=== PATIENT | female | born 1985 | race Caucasian/White ===

== ENCOUNTER 2019-12-31 00:22 | Emergency (ER) | payer MEDICAID ==
[2019-12-31] MEDS ORDERED: DICYCLOMINE HCL INJ 20 MG/2 ML AMPULE IM ONE ×2 (01:10→04:00)
[2019-12-31] MEDS ORDERED: ONDANSETRON 4 MG TAB.RAPDIS PO ONE ×2 (01:10→04:00)
[2019-12-31] MEDS ORDERED: FAMOTIDINE 20 MG TABLET PO ONE ×2 (01:10→04:00)
--- NOTE | 2019-12-31 01:14 | ER Document Report ---
ED Medical Screen (RME) - General Chief Complaint: Abdominal Pain Stated Complaint: CHEST PAIN Time Seen by Provider: 12/31/19 01:07 Mode of Arrival: Ambulatory Information source: Patient Notes: 34-year-old female coming in today for abdominal pain that is now radiating into the chest pain. Symptoms going on for the past couple of days. Patient has a complex history of abdominal/rectal surgeries in the past. No known bowel obstructions. Having pain in the abdomen but now also having pain up under her left breast. Physical exam General: Patient looks very uncomfortable, nontoxic Cardiac regular rate and rhythm, no murmurs rubs or gallops Pulmonary: Tachypneic lung sounds clear Abdomen: Tenderness to the right upper quadrant, left upper quadrant, epigastrium Neuro no focal neuro deficits I have greeted and performed a rapid initial assessment of this patient. A comprehensive ED assessment and evaluation of the patient, analysis of test results and completion of the medical decision making process will be conducted by additional ED providers. - Related Data Allergies/Adverse Reactions: diphenhydramine [From Benadryl] Adverse Reaction (Verified 12/31/19 01:07) Past Medical History - Social History Frequency of alcohol use: None Drug Abuse: Marijuana Physical Exam - Vital signs Vitals: Temp Pulse Resp BP Pulse Ox 97.6 F 92 16 104/62 100 12/31/19 00:30 12/31/19 00:30 12/31/19 00:30 12/31/19 00:30 12/31/19 00:30 Course - Vital Signs Vital signs: Temp Pulse Resp BP Pulse Ox 97.6 F 92 16 104/62 100 12/31/19 00:30 12/31/19 00:30 12/31/19 00:30 12/31/19 00:30 12/31/19 00:30
[2019-12-31 01:45] LABS: ABSOLUTE EOSINOPHILS # (AUTO) 0.1 10^3/uL (0.0-0.6); ABSOLUTE MONOCYTES (AUTO) 0.6 10^3/uL (0.1-1.4); EOSINOPHILS % (AUTO) 1.4 % (0-6); TOTAL CELLS COUNTED % (AUTO) 100 %
[2019-12-31 01:48] LABS: ABSOLUTE BASOPHILS # (AUTO) 0.1 10^3/uL (0.0-0.2); ABSOLUTE NEUT (AUTO) 5.7 10^3/uL (1.7-8.2); BASOPHILS % (AUTO) 0.6 % (0-2); HEMATOCRIT 36.8 % (36.0-47.0); HEMOGLOBIN 12.9 g/dL (12.0-15.5); LYMPHOCYTES % (AUTO) 38.2 % (13-45); MEAN CORPUSCULAR HEMOGLOBIN 32.4 pg (27.0-33.4); MEAN CORPUSCULAR HGB CONC 35.1 g/dL (32.0-36.0); MEAN CORPUSCULAR VOLUME 92 fl (80-97); MONOCYTES % (AUTO) 5.8 % (3-13); PLATELET COUNT 177 10^3/uL (150-450); RED BLOOD COUNT 3.99 10^6/uL (3.72-5.28); RED CELL DISTRIBUTION WIDTH 13.2 % (11.5-14.0); WHITE BLOOD COUNT 10.5 10^3/uL (4.0-10.5)
[2019-12-31 01:54] LABS: AMORPHOUS SEDIMENT,URINE TRACE /HPF; APPEARANCE,URINE CLOUDY; BILIRUBIN,URINE NEGATIVE (NEGATIVE); COLOR,URINE YELLOW; GLUCOSE, URINE NEGATIVE (NEGATIVE); KETONES,URINE NEGATIVE (NEGATIVE); PROTEIN,URINE NEGATIVE (NEGATIVE); URINE SPECIFIC GRAVITY 1.017
[2019-12-31 02:03] LABS: ALBUMIN 4.5 g/dL (3.5-5.0); ALKALINE PHOSPHATASE 70 U/L (38-126); ANION GAP 9 (5-19); ASPARTATE AMINO TRANSFERASE 23 U/L (14-36); BILIRUBIN,DIRECT 0.2 mg/dL (0.0-0.4); BILIRUBIN,TOTAL 0.7 mg/dL (0.2-1.3); BLOOD UREA NITROGEN 11 mg/dL (7-20); CALCIUM 9.6 mg/dL (8.4-10.2); CARBON DIOXIDE 27 mmol/L (22-30); CHLORIDE 106 mmol/L (98-107); GLUCOSE 89 mg/dL (75-110); POTASSIUM 4.3 mmol/L (3.6-5.0)
--- NOTE | 2019-12-31 03:10 | RADIOLOGY REPORT (SQ) ---
CHEST X-RAY 1 VIEW on 12/31/2019 at 2:51 AM CLINICAL INDICATION: Chest pain COMPARISON: None FINDINGS: The lungs are clear. Cardiac, hilar and mediastinal contours are within normal limits. Pulmonary vascularity is within normal limits. No bony abnormality is noted. IMPRESSION: No active disease.
--- NOTE | 2019-12-31 03:17 | RADIOLOGY REPORT (SQ) ---
COMPLETED DATE/TME: 12/31/2019 01:09 EXAM: One view(s) of the abdomen. INDICATION: Abdominal distention. COMPARISON: None. FINDINGS: Bowel: No dilated loops of small bowel or air-fluid levels. Moderate amount of stool within the colon. Bones: Postsurgical changes at L5-S1. Other: None. IMPRESSION: 1. Nonspecific, nonobstructed bowel gas pattern.
[2019-12-31] MEDS ORDERED: MAGNESIUM CITRATE 296 ML BOTTLE PO ONE (08:37)
[2019-12-31] MEDS ORDERED: OXYCODONE-ACETAMINOPHEN 5-325 MG TABLET PO ONE (08:37)
[2019-12-31] MEDS ORDERED: LIDOCAINE 2% VISCOUS SOLN 15 ML UDCUP PO ONE (08:37)
[2019-12-31] MEDS ORDERED: MAG HYDROX/AL HYDROX/SIMETH SUSP 30 ML UDCUP PO ONE (08:37)
[2019-12-31] MEDS ORDERED: METOCLOPRAMIDE HCL ORAL SOLN 10 MG/10 ML UDCUP PO ONE (08:37)
--- NOTE | 2019-12-31 08:37 | EKG REPORT ---
SEVERITY:- NORMAL ECG - SINUS RHYTHM : Confirmed by: Latosha Mirza MD 31-Dec-2019 08:36:15
--- NOTE | 2019-12-31 08:42 | ER Document Report ---
ED Cardiac - General Chief Complaint: Abdominal Pain Stated Complaint: CHEST PAIN Time Seen by Provider: 12/31/19 01:07 Primary Care Provider: CECILIA,NO [Primary Care Provider] - Follow up as needed Mode of Arrival: Ambulatory Notes: CHIEF COMPLAINT: Abdominal pain constipation chest pain HPI: 34-year-old female presenting with abdominal pain and constipation over the last 3 to 4 days. Some nausea no vomiting. Reports onset of left-sided chest discomfort with some radiation of the discomfort down the arm last night and at work yesterday afternoon. Patient denies prior cardiac history other than PVCs but states she does have a history of high cholesterol. ROS: See HPI - all other systems were reviewed and are otherwise negative Constitutional: no fever Eyes: no drainage, no blurred vision ENT: no runny nose, no sore throat Cardiovascular: + chest pain Resp: no SOB, no cough GI: no vomiting, no diarrhea, + abdominal pain, positive constipation : no dysuria Integumentary: no rash Allergy: no hives Musculoskeletal: no extremity pain or swelling Neurological: no numbness/tingling, no weakness MEDICATIONS: I agree with the patient medications as charted by the RN. ALLERGIES: I agree with the allergies as charted by the RN. PAST MEDICAL HISTORY/PAST SURGICAL HISTORY: Reviewed and agree as charted by RN. SOCIAL HISTORY: Reviewed and agree as charted by RN. FAMILY HISTORY: No significant familial comorbid conditions directly related to patient complaint EXAM: Reviewed vital signs as charted by RN. CONSTITUTIONAL: Alert and oriented and responds appropriately to questions. Well-appearing; well-nourished, patient is very angry HEAD: Normocephalic; atraumatic EYES: PERRL; Conjunctivae clear, sclerae non-icteric ENT: normal nose; no rhinorrhea; moist mucous membranes; pharynx without lesions noted, no uvula edema or deviation, no tonsillar hypertrophy, phonation normal NECK: Supple without meningismus; non-tender; no cervical lymphadenopathy, no masses CARD: RRR; no murmurs, no clicks, no rubs, no gallops; symmetric distal pulses RESP: Normal chest excursion without splinting or tachypnea; breath sounds clear and equal bilaterally; no wheezes, no rhonchi, no rales, pulse oximetry 98% on room air not hypoxic ABD/GI: Normal bowel sounds; non-distended; soft, mild tenderness in the right lateral abdomen on palpation, no rebound, no guarding; no palpable organomegaly or masses. BACK: The back appears normal and is non-tender to palpation, there is no CVA tenderness EXT: Normal ROM in all joints; non-tender to palpation; no cyanosis, no effusio ns, no edema SKIN: Normal color for age and race; warm; dry; good turgor; no acute lesions noted NEURO: Moves all extremities equally; Motor and sensory function intact PSYCH: The patient's mood and manner are appropriate. Grooming and personal hygiene are appropriate. MDM: EKG on 12/31/19 at 0034 AM normal sinus rhythm with a ventricular rate of 86, NJ 132, QT 348, QTc 417. No other visible ectopy. Normal EKG. Interpreted by emergency department physician. 34-year-old female with history of GI issues who follows at [place] states that 2 years ago had resection of a section of colon because it was adhered to the uterus presenting for onset of some abdominal pain last night with constipation over the last several days. Initially seen via the triage process to obtain screening labs and x-ray imaging. X-ray imaging does suggest constipation. Pain goes into the left chest described as a sharp sensation with some radiation of the discomfort down the arm does not change with position movement. Patient relates no specific history of reflux. States she was given medications overnight which appear to be Bentyl and Pepcid which did not help her pain. Patient on review of her chart has normal lab work including initial screening cardiac labs as well as initial EKG. Patient has intact bowel sounds. She does not appear to have an obstructive process on x-ray. Will give GI cocktail, magnesium citrate, pain medication, will recheck troponin and EKG given her chest pain complaint. I do have low suspicion for ACS at this time - Related Data Allergies/Adverse Reactions: diphenhydramine [From Benadryl] Adverse Reaction (Verified 12/31/19 01:07) Past Medical History - General Information source: Patient - Social History Smoking Status: Current Every Day Smoker Frequency of alcohol use: None Drug Abuse: Marijuana Family History: Reviewed & Not Pertinent Physical Exam - Vital signs Vitals: Temp Pulse Resp BP Pulse Ox 97.6 F 92 16 104/62 100 12/31/19 00:30 12/31/19 00:30 12/31/19 00:30 12/31/19 00:30 12/31/19 00:30 Course - Re-evaluation Re-evalutation: 12/31/19 10:03 Patient feels much better after GI cocktail. Awaiting second troponin and EKG 12/31/19 11:07 Patient second EKG normal sinus rhythm with a ventricular rate of 64, no other ectopy. Interpreted by emergency department physician. NJ 148, QT 404, QTc 417. Patient is still feeling better, will discharge home with magnesium citrate, she will take milk of magnesia intermittently with her MiraLAX to help with her constipation. Will refer to gastroenterology locally for follow-up - Vital Signs Vital signs: Temp Pulse Resp BP Pulse Ox 97.7 F 71 16 104/64 100 12/31/19 04:08 12/31/19 04:08 12/31/19 04:08 12/31/19 04:08 12/31/19 04:08 - Laboratory Result Diagrams: 12/31/19 01:23 12/31/19 01:23 Laboratory results interpreted by me: 12/31/19 01:23 Urine Nitrite (Reflex) POSITIVE H Urine Urobilinogen 2.0 H Discharge - Discharge Clinical Impression: Abdominal pain Qualifiers: Abdominal location: lower abdomen, unspecified Qualified Code(s): R10.30 - Lower abdominal pain, unspecified Constipation Qualifiers: Constipation type: other constipation type Qualified Code(s): K59.09 - Other constipation Chest pain Qualifiers: Chest pain type: unspecified Qualified Code(s): R07.9 - Chest pain, unspecified Condition: Stable Disposition: HOME, SELF-CARE Additional Instructions: Continue MiraLAX for constipation. Take milk of magnesia once or twice weekly to help with constipation. Follow-up with gastroenterology for further evaluation and treatment call for appointment. Your lab work today did not show acute emergent abnormalities. Your x-rays do suggest constipation as a likely source for your discomfort. If you develop a fever greater than 101 or worsening pain or problems please return for reevaluation. Take the Carafate to help with the upper abdominal discomfort Prescriptions: Sucralfate [Carafate 1 gm Tablet] 1 gm PO ACHS #120 tablet Referrals: HARMAN HILL MD [ACTIVE STAFF] - Follow up as needed
[2019-12-31] MEDS ORDERED: SULFAMETHOXAZOLE/TRIMETHOPRIM 800-160 MG TABLET PO ONE (08:43)
[2019-12-31 09:25] LABS: URINE AMPHETAMINES SCREEN NEGATIVE; URINE BARBITURATES SCREEN NEGATIVE; URINE BENZODIAZEPINES SCREEN NEGATIVE; URINE COCAINE SCREEN NEGATIVE; URINE METHADONE SCREEN NEGATIVE; URINE PHENCYCLIDINE SCREEN NEGATIVE
[2019-12-31 09:27] LABS: URINE MARIJUANA (THC) SCREEN UNCONFIRMED POSITIVE
[2019-12-31 11:19] VITALS: BP 92/76
--- NOTE | 2019-12-31 14:36 | EKG REPORT ---
SEVERITY:- NORMAL ECG - SINUS RHYTHM : Confirmed by: Latosha Mirza MD 31-Dec-2019 14:35:00
== END 2019-12-31 11:18 | disposition home or self-care (01) ==
LOC: ER 00:22
DX: R10.30 Lower abdominal pain, unspecified (principal); R07.9 Chest pain, unspecified; K59.09 Other constipation; F17.200 Nicotine dependence, unspecified, uncomplicated
CPT/HCPCS: 93005; 99285; 96372; 36415; 87086; 83690; 84703; 85025; 87088; 80053; 81001; 84484; 80307; 71045; 74018; 93010; J3490 ×6; J0500; S0119; 87186